=== PATIENT | female | born 1965 | race African-American/Black ===

== ENCOUNTER 2019-02-04 13:18 | Inpatient (IN) | payer BC ==
[~2019-02-04] VITALS: Ht 162.6 cm; Wt 72.6 kg
[2019-02-04] VITALS (10 sets, daily range): BP systolic 134–158; BP diastolic 81–100
[2019-02-04] MEDS ORDERED: TRIBENZOR 20-51 EACH ORAL (13:28)
--- NOTE | 2019-02-04 13:45 | NUR ---
ED Nurse Note: Patient presents to ER for hernia repair. Dr. Malave at bedside. Patient awake, alert, oriented x 4. Regular, unlabored breathing noted. Patient reports no pain. Patient has protruding area over right lower abdomen. Reports no N/V or fever. Resting in bed without facial grimacing or guarding. Bed in lowest position. Report given to KYLE Giraldo.
[2019-02-04 14:07] LABS: BASOPHILS % (AUTO) 0.7 % (0.0-2.0); EOSINOPHILS % (AUTO) 1.2 % (0.0-3.0); HEMATOCRIT 39.7 % (37.0-47.0); LYMPHOCYTES % (AUTO) 33.8 % (20.0-45.0); MEAN CORPUSCULAR VOLUME 81 FL (80-99); MONOCYTES % (AUTO) 10.7 % (1.0-10.0); NEUTROPHILS % (AUTO) 53.5 % (45.0-75.0); PLATELET COUNT 391 K/UL (150-450); RED BLOOD COUNT 4.89 M/UL (4.20-5.40); RED CELL DISTRIBUTION WIDTH 14.5 % (11.6-14.8); WHITE BLOOD COUNT 5.7 K/UL (4.8-10.8)
--- NOTE | 2019-02-04 14:11 | NUR ---
ED Nurse Note: pt amb steady gait to brp to obtain urine sample. portable xrays being done
[2019-02-04 14:12] LABS: ANION GAP 8 mmol/L (5-15); BLOOD UREA NITROGEN 12 mg/dL (7-18); CALCIUM 9.3 MG/DL (8.5-10.1); CARBON DIOXIDE 30 MMOL/L (21-32); CHLORIDE 102 MMOL/L (98-107); CREATININE 0.9 MG/DL (0.55-1.30); POTASSIUM 3.6 MMOL/L (3.5-5.1); SODIUM 139 MMOL/L (136-145)
[2019-02-04 14:27] LABS: ALANINE AMINOTRANSFERASE 10 U/L (12-78); ALKALINE PHOSPHATASE 67 U/L (46-116); ASPARTATE AMINO TRANSFERASE 11 U/L (15-37); BILIRUBIN,TOTAL 0.3 MG/DL (0.2-1.0); CKMB < 0.5 NG/ML (0.0-3.6); CREATINE KINASE 137 U/L (26-308)
--- NOTE | 2019-02-04 14:41 | NUR ---
ED Nurse Note: pt to ct scan no changes in s/s
--- NOTE | 2019-02-04 14:47 | Diagnostic Imaging Report ---
Indication: Chest pain Comparison: None A single view chest radiograph was obtained. Findings: No definite infiltrate or pulmonary vascular congestion identified. The heart is enlarged. The aorta is mildly enlarged consistent with atherosclerotic vascular disease. Impression: No acute disease
--- NOTE | 2019-02-04 14:56 | NUR ---
ED Nurse Note: pt back from ct scan. aware to remain npo pt relates no pain at this time
--- NOTE | 2019-02-04 15:20 | Diagnostic Imaging Report ---
Indication: Abdominal pain Technique: Continuous helical transaxial imaging of the abdomen and pelvis was obtained from the lung bases to the pubic symphysis during intravenous contrast administration. Coronal 2-D reformats were also obtained. Study obtained in a Siemens sensation [address] Automatic Exposure Control was utilized. Total Dose length Product (DLP): 758.[address] Dose Index Volume (CTDIvol): 15.47 mGy Comparison: None Findings: The heart is mildly enlarged. The lungs are essentially clear as visualized. Ill-defined hypodensity in the left lobe. 1.8 cm cyst noted in the left lobe as well. Gallbladder is contracted and unremarkable otherwise. The pancreas and spleen, both adrenal glands appear normal. There is a small cyst in the right kidney. There is no hydronephrosis. There is a right inguinal hernia demonstrated. Within the hernia there is a 4.5 cm encapsulated, rim-enhancing cystic lesion. There is a moderate degree of inflammation surrounding the cystic lesion within the hernia sac which may be incarcerated. Correlate clinically. The appendix is normal. There are large uterine fibroids present. For example the largest is in the fundus measuring about 10 x 8 x 10 cm. Another prominent more central fibroid measuring about 6 cm noted. Another 5 cm fibroid noted anteriorly. The bladder is nondistended. The appendix is seen and normal. Few diverticula noted in the colon without evidence of diverticulitis. Pattern is nonobstructive. There is no ascites. IMPRESSION: Right inguinal hernia with moderate inflammation and now 4.5 cm complex cyst structure with rim enhancement within the hernia sac. Correlate clinically for incarceration. The nature of the cystic lesion is unknown but appears inflammatory. Enlarged uterus due to large uterine fibroids as described above. Normal appendix. Diverticulosis of the colon. No definite diverticulitis. Liver cysts. The CT scanner at [facility] is accredited by the [employer] and the scans are performed using dose optimization techniques as appropriate to a performed exam including Automatic Exposure control.
--- NOTE | 2019-02-04 15:33 | NUR ---
ED Nurse Note: dr elkins here to irena paz.
[2019-02-04 15:50] LABS: APPEARANCE,URINE CLEAR; BILIRUBIN, URINE NEGATIVE (NEGATIVE); GLUCOSE, URINE (UA) NEGATIVE (NEGATIVE); KETONES,URINE NEGATIVE (NEGATIVE); LEUKOCYTE ESTERASE ,URINE NEGATIVE (NEGATIVE); NITRITE,URINE NEGATIVE (NEGATIVE); PH,URINE 6 (4.5-8.0); PROTEIN,URINE NEGATIVE (NEGATIVE); UROBILINOGEN,URINE NORMAL MG/DL (0.0-1.0)
[2019-02-04 16:05] LABS: COLOR,URINE YELLOW
--- NOTE | 2019-02-04 16:42 | Consultation ---
History of Present Illness General Date patient seen: Feb 04, 2019 Reason for Hospitalization: General Complaint Present Illness HPI This is a very pleasant 53-year-old female who presented earlier to my office complaining of acute worsening right groin pain. Patient is well-known to me from prior who was initially seen earlier this year for evaluation of right groin discomfort but during examination was not identified to have a large hernia and one could not be reproduced on examination in the office. At that time a definitive hernia cannot be diagnosed and patient was fairly asymptomatic but just comes for evaluation. At that time after long discussion with the patient decision was made not to pursue any further imaging and monitor given fairly asymptomatic and no reproducible hernia can be noted on examination. Since I have not heard back from patient she states she was doing well until couple days ago when she began to have acute onset of pain and has since noticed a bulge in her groin. She was concerned and came into the office for evaluation. In the office she was noted to have a nonreducible right inguinal hernia that was tender and she was sent to the emergency room for evaluation. Expresses discomfort no nausea no vomiting. Allergies: Coded Allergies: No Known Allergies (Unverified , 02/04/19) Medication History Scheduled Olmesartan Med/Amlodipine/Hctz 20-5-12.5MG (Tribenzor 20-5-12.5 Mg Tablet), 1 TAB ORAL DAILY, (Reported) Patient History History Provided By: Patient, Medical Record, PMD Healthcare decision maker Resuscitation status Advanced Directive on File Past Medical/Surgical History Past Medical/Surgical History: (1) Incarcerated right inguinal hernia Review of Systems Review of Symptoms General ROS: no weight loss or fever Psychological ROS: no depression or mood changes, no memory loss Ophthalmic ROS: no visual changes or eye irritation ENT ROS: no nasal congestion, hearing loss, dizziness Allergy and Immunology ROS: no allergic symptoms or urticaria Hematological and Lymphatic ROS: no swollen glands, unusual bleeding or bruising Endocrine ROS: no polyuria, polydipsia, weight changes, temperature intolerance Respiratory ROS: no cough, shortness of breath, or wheezing Cardiovascular ROS: no chest pain or dyspnea on exertion Gastrointestinal ROS: denies abdominal pain, no bright red blood in stool. Musculoskeletal ROS: no myalgias or arthralgias Neurological ROS: no TIA or stroke symptoms Dermatological ROS: no new or changing skin lesions, rashes or pruritis Physical Exam Physical Exam General appearance: alert, cooperative, no distress, appears stated age Head: Normocephalic, without obvious abnormality, atraumatic Eyes: conjunctivae/corneas clear. PERRL, EOM's intact. Fundi benign Throat: Lips, mucosa, and tongue normal. Teeth and gums normal Neck: supple, symmetrical, trachea midline, no adenopathy, thyroid: not enlarged, symmetric, no tenderness/mass/nodules, no carotid bruit and no JVD Lungs: clear to auscultation bilaterally Heart: regular rate and rhythm, S1, S2 normal, no murmur, click, rub or gallop Abdomen: soft, non-tender. Bowel sounds normal. No masses, no organomegaly Extremities: extremities normal, atraumatic, no cyanosis or edema Pulses: 2+ and symmetric Skin: Skin color, texture, turgor normal. No rashes or lesions Neurologic: Grossly normal Incarcerated tender right inguinal hernia Last 24 Hour Vital Signs Date Time Temp Pulse Resp B/P (MAP) Pulse Ox O2 Delivery O2 Flow Rate FiO2 02/04/19 13:40 64 16 Room Air 02/04/19 13:24 98.2 68 16 144/98 (113) 95 Room Air Laboratory Tests Test 02/04/19 13:50 02/04/19 14:30 White Blood Count 5.7 K/UL (4.8-10.8) Red Blood Count 4.89 M/UL (4.20-5.40) Hemoglobin 12.0 G/DL (12.0-16.0) Hematocrit 39.7 % (37.0-47.0) Mean Corpuscular Volume 81 FL (80-99) Mean Corpuscular Hemoglobin 24.5 PG (27.0-31.0) L Mean Corpuscular Hemoglobin Concent 30.2 G/DL (32.0-36.0) L Red Cell Distribution Width 14.5 % (11.6-14.8) Platelet Count 391 K/UL (150-450) Mean Platelet Volume 5.7 FL (6.5-10.1) L Neutrophils (%) (Auto) 53.5 % (45.0-75.0) Lymphocytes (%) (Auto) 33.8 % (20.0-45.0) Monocytes (%) (Auto) 10.7 % (1.0-10.0) H Eosinophils (%) (Auto) 1.2 % (0.0-3.0) Basophils (%) (Auto) 0.7 % (0.0-2.0) Prothrombin Time 10.6 SEC (9.30-11.50) Prothromb Time International Ratio 1.0 (0.9-1.1) Activated Partial Thromboplast Time 31 SEC (23-33) Sodium Level 139 MMOL/L (136-145) Potassium Level 3.6 MMOL/L (3.5-5.1) Chloride Level 102 MMOL/L (98-107) Carbon Dioxide Level 30 MMOL/L (21-32) Anion Gap 8 mmol/L (5-15) Blood Urea Nitrogen 12 mg/dL (7-18) Creatinine 0.9 MG/DL (0.55-1.30) Estimat Glomerular Filtration Rate > 60 mL/min (>60) Glucose Level 111 MG/DL (74-106) H Calcium Level 9.3 MG/DL (8.5-10.1) Total Bilirubin 0.3 MG/DL (0.2-1.0) Aspartate Amino Transf (AST/SGOT) 11 U/L (15-37) L Alanine Aminotransferase (ALT/SGPT) 10 U/L (12-78) L Alkaline Phosphatase 67 U/L (46-116) Total Creatine Kinase 137 U/L (26-308) Creatine Kinase MB < 0.5 NG/ML (0.0-3.6) Creatine Kinase MB Relative Index 0.3 Troponin I 0.000 ng/mL (0.000-0.056) Total Protein 7.9 G/DL (6.4-8.2) Albumin 4.0 G/DL (3.4-5.0) Globulin 3.9 g/dL Albumin/Globulin Ratio 1.0 (1.0-2.7) Urine Color Yellow Urine Appearance Clear Urine pH 6 (4.5-8.0) Urine Specific [place] 1.015 (1.005-1.035) Urine Protein Negative (NEGATIVE) Urine Glucose (UA) Negative (NEGATIVE) Urine Ketones Negative (NEGATIVE) Urine Blood 4+ (NEGATIVE) H Urine Nitrite Negative (NEGATIVE) Urine Bilirubin Negative (NEGATIVE) Urine Urobilinogen Normal MG/DL (0.0-1.0) Urine Leukocyte Esterase Negative (NEGATIVE) Urine RBC 0-2 /HPF (0 - 2) Urine WBC 0-2 /HPF (0 - 2) Urine Squamous Epithelial Cells Occasional /LPF Urine Bacteria Few /HPF (NONE) Urine Mucus Many /LPF (NONE/OCC) H Urine Opiates Screen Negative (NEGATIVE) Urine Barbiturates Screen Negative (NEGATIVE) Phencyclidine (PCP) Screen Negative (NEGATIVE) Urine Amphetamines Screen Negative (NEGATIVE) Urine Benzodiazepines Screen Negative (NEGATIVE) Urine Cocaine Screen Negative (NEGATIVE) Urine Marijuana (THC) Screen Negative (NEGATIVE) Height (Feet): 5 Height (Inches): 4.00 Weight (Pounds): 160 Assessment/Plan Problem List: (1) Incarcerated right inguinal hernia Assessment & Plan: This is a 53-year-old female with acute incarcerated right inguinal hernia. Hernia is symptomatic and not reducible. CT with abnormal findings as below. Right inguinal hernia with moderate inflammation and now 4.5 cm complex cyst structure with rim enhancement within the hernia sac. Correlate clinically for incarceration. The nature of the cystic lesion is unknown but appears inflammatory. N.p.o. IV fluids IV antibiotics OR for reduction and repair of right incarcerated inguinal hernia. Risk-benefit alternative discussed patient in detail. Consent obtained. ICD Codes: K40.30 - Unilateral inguinal hernia, with obstruction, without gangrene, not specified as recurrent SNOMED: [id number] Jakob Malave Feb 04, 2019 16:42
[2019-02-04] MEDS ORDERED: ceFAZolin sod 2 GM in D5W 110 ML IV ONE (16:45)
[2019-02-04] MEDS ORDERED: Bacitracin 50000 Units Vial ONE (17:14)
--- NOTE | 2019-02-04 17:16 | NUR ---
ED Nurse Note: pt signing belongings list, all belongings home with sister. pt with abx infusion and ns infusion. pt signing both surgical and blood product consent. pt aware to go to or from ed and agrees procedure explained by dr elkins.
--- NOTE | 2019-02-04 17:18 | NUR ---
ED Nurse Note: no swabs obtained as pt from home and no prior admission, does not meet criteria for protocol
[2019-02-04] MEDS ORDERED: LR 1000ml ONE (17:30)
[2019-02-04] MEDS ORDERED: Sterile Water Irrig 1000ml IRRIG ONE (17:30)
[2019-02-04] MEDS ORDERED: NS Irrig 1000ml ONE (17:30)
[2019-02-04] MEDS ORDERED: Propofol 200mg/20ml IV ONE (17:30)
[2019-02-04] MEDS ORDERED: Zemuron 50mg/5ml Inj IV ONE (17:30)
--- NOTE | 2019-02-04 17:35 | NUR ---
ED Nurse Note: pt report given to [facility] ATTORNEY Shweta. aware of pt status of npo since last night. pt tp OR with transport staff
[2019-02-04] MEDS ORDERED: Dexamethasone 4mg/ml vial ONE (17:41)
[2019-02-04] MEDS ORDERED: Lidocaine 1% MPF 10mg/ml 5ml ONE (17:41)
[2019-02-04] MEDS ORDERED: Sodium Chloride 10ml vial INJ ONE (17:41)
[2019-02-04] MEDS ORDERED: fentaNYL 100 mcg/2 mL IV ONE (17:42)
[2019-02-04] MEDS ORDERED: LR 1000ml 1,000 ML IVLG SCH (17:46)
[2019-02-04] MEDS ORDERED: fentaNYL 100 mcg/2 mL IV PRN (18:00)
[2019-02-04] MEDS ORDERED: oxyCODONE HCL/Acetaminophen 5/325mg ORAL PRN (18:00)
[2019-02-04] MEDS ORDERED: HYDROcodone/Acetamin 7.5/325 tab ORAL PRN (18:00)
[2019-02-04] MEDS ORDERED: DiphenhydrAMINE 50mg/ml Inj IVP PRN (18:00)
[2019-02-04] MEDS ORDERED: Ketorolac 30mg Inj IV PRN ×3 (18:00→19:15)
[2019-02-04] MEDS ORDERED: LORazepam Inj 2mg/ml 1ml IV PRN (18:00)
[2019-02-04] MEDS ORDERED: Atropine Sulfate 0.4mg/ml inj IVP PRN (18:00)
[2019-02-04] MEDS ORDERED: Midazolam 2mg/2ml Inj IVP PRN (18:00)
[2019-02-04] MEDS ORDERED: HYDROcodone/Acetamin 5/325 tab ORAL PRN ×2 (18:00→19:15)
[2019-02-04] MEDS ORDERED: Labetalol 5mg/ml 20ml vial IV PRN (18:00)
[2019-02-04] MEDS ORDERED: Hydromorphone 0.5mg/0.5ml inj IVP PRN ×2 (18:00→19:15)
[2019-02-04] MEDS ORDERED: Metoclopramide 10mg/2ml Inj IVP PRN ×3 (18:00→21:15)
[2019-02-04] MEDS ORDERED: Meperidine 50mg/ml Inj(FOR RIGORS ONLY) IVP PRN (18:00)
--- NOTE | 2019-02-04 18:01 | Pre-Procedure Note/Attestation ---
Pre-Procedure Note/Attestation Complete Prior to Procedure Planned Procedure: right Procedure Narrative: right inguinal hernia repair with mesh Indications for Procedure Pre-Operative Diagnosis: incarcerated right inguinal hernia Attestation I attest that I discussed the nature of the procedure; its benefits; risks and complications; and alternatives (and the risks and benefits of such alternatives ), prior to the procedure, with the patient (or the patient's legal registered representative). I attest that, if there was a reasonable possibility of needing a blood transfusion, the patient (or the patient's legal registered representative) was given the [facility] standardized written summary, pursuant to the Dharmesh [place] Blood Safety Act ([place] Health and Safety Code # 1645, as amended). I attest that I re-evaluated the patient just prior to the surgery and that there has been no change in the patient's H&P, except as documented below: Jakob Malave Feb 04, 2019 18:01
--- NOTE | 2019-02-04 18:17 | Anethesia Preoperative Eval ---
Anesthesia Pre-op PMH/ROS General Date of Evaluation: Feb 04, 2019 Time of Evaluation: 17:36 Anesthesiologist: Radha ASA Score: ASA 2 - Emergency Mallampati Score Class I : Soft palate, uvula, fauces, pillars visible Class II: Soft palate, uvula, fauces visible Class III: Soft palate, base of uvula visible Class IV: Only hard plate visible Mallampati Classification: Class I Surgeon: Ananda Diagnosis: R Inguinal Hernia Surgical Procedure: Open R Inguinal Hernia Repair Anesthesia History: none Family History: no anesthesia problems Allergies: Coded Allergies: No Known Allergies (Unverified , 02/04/19) Medications: see eMAR Patient NPO?: Yes Past Medical History Cardiovascular: Reports: HTN Other: other - Overweight Anesthesia Pre-op Phys. Exam Physician Exam Last Vital Signs Date Time Temp Pulse Resp B/P (MAP) Pulse Ox O2 Delivery O2 Flow Rate FiO2 02/04/19 17:37 99.1 64 18 135/91 99 Room Air Constitutional: NAD Neurologic: CN 2-12 intact Cardiovascular: RRR Respiratory: CTA Gastrointestinal: S/NT/ND Airway Exam Mallampati Score: Class I MO: full ROM: full Teeth: intact Anesthesia Pre-op A/P Labs Hematology Test 02/04/19 13:50 White Blood Count 5.7 K/UL (4.8-10.8) Red Blood Count 4.89 M/UL (4.20-5.40) Hemoglobin 12.0 G/DL (12.0-16.0) Hematocrit 39.7 % (37.0-47.0) Mean Corpuscular Volume 81 FL (80-99) Mean Corpuscular Hemoglobin 24.5 PG (27.0-31.0) L Mean Corpuscular Hemoglobin Concent 30.2 G/DL (32.0-36.0) L Red Cell Distribution Width 14.5 % (11.6-14.8) Platelet Count 391 K/UL (150-450) Mean Platelet Volume 5.7 FL (6.5-10.1) L Neutrophils (%) (Auto) 53.5 % (45.0-75.0) Lymphocytes (%) (Auto) 33.8 % (20.0-45.0) Monocytes (%) (Auto) 10.7 % (1.0-10.0) H Eosinophils (%) (Auto) 1.2 % (0.0-3.0) Basophils (%) (Auto) 0.7 % (0.0-2.0) Coagulation Test 02/04/19 13:50 Prothrombin Time 10.6 SEC (9.30-11.50) Prothromb Time International Ratio 1.0 (0.9-1.1) Activated Partial Thromboplast Time 31 SEC (23-33) Chemistry Test 02/04/19 13:50 Sodium Level 139 MMOL/L (136-145) Potassium Level 3.6 MMOL/L (3.5-5.1) Chloride Level 102 MMOL/L (98-107) Carbon Dioxide Level 30 MMOL/L (21-32) Anion Gap 8 mmol/L (5-15) Blood Urea Nitrogen 12 mg/dL (7-18) Creatinine 0.9 MG/DL (0.55-1.30) Estimat Glomerular Filtration Rate > 60 mL/min (>60) Glucose Level 111 MG/DL (74-106) H Calcium Level 9.3 MG/DL (8.5-10.1) Total Bilirubin 0.3 MG/DL (0.2-1.0) Aspartate Amino Transf (AST/SGOT) 11 U/L (15-37) L Alanine Aminotransferase (ALT/SGPT) 10 U/L (12-78) L Alkaline Phosphatase 67 U/L (46-116) Total Creatine Kinase 137 U/L (26-308) Creatine Kinase MB < 0.5 NG/ML (0.0-3.6) Creatine Kinase MB Relative Index 0.3 Troponin I 0.000 ng/mL (0.000-0.056) Total Protein 7.9 G/DL (6.4-8.2) Albumin 4.0 G/DL (3.4-5.0) Globulin 3.9 g/dL Albumin/Globulin Ratio 1.0 (1.0-2.7) Risk Assessment & Plan Assessment: ASA 2E Plan: GA, SED, GlideScope Go Status Change Before Surgery: No Pre-Antibiotics Dru Gram Ancef IV Given Within 1 Hr of Incision: Yes Time Given: 17:46 Renato Garcia MD Feb 04, 2019 18:16
--- NOTE | 2019-02-04 18:18 | Immediate Post-Op Evaluation ---
Immediate Post-Op Evalulation Immediate Post-Op Evalulation Procedure: Open R Inguinal Hernia Repair Date of Evaluation: Feb 04, 2019 Time of Evaluation: 17:37 IV Fluids: 1000 LR Blood Products: 0 Estimated Blood Loss: 20 Urinary Output: 0 Blood Pressure Systolic: 143 Blood Pressure Diastolic: 101 Pulse Rate: 97 Respiratory Rate: 16 O2 Sat by Pulse Oximetry: 100 Temperature (Fahrenheit): 98 Pain Score (1-10): 2 Nausea: No Vomiting: No Complications 0 Patient Status: awake, reacts, patent, extubated, none Hydration Status: adequate Dru Gram Ancef IV Given Within 1 Hr of Incision: Yes Time Given: 17:46 Renato Garcia MD Feb 04, 2019 18:18
[2019-02-04] MEDS ORDERED: Glycopyrrolate 0.2mg/ml 1ml Vial ONE (18:32)
[2019-02-04] MEDS ORDERED: Neostigmine 1mg/ml 10ml Inj ONE (18:32)
[2019-02-04] MEDS ORDERED: Acetaminophen (Non formulary) 100 ML IV ONE (19:00)
[2019-02-04] MEDS ORDERED: HYDROmorphone 1mg/ml Carpuject IVP PRN (19:15)
[2019-02-04] MEDS ORDERED: HYDROcodone/Acetamin 10/325 tab ORAL PRN (19:15)
[2019-02-04] MEDS ORDERED: Milk of Magnesia 30ml Ud ORAL PRN (19:15)
--- NOTE | 2019-02-04 19:17 | Brief Operative Note ---
Immediate Post Operative Note Operative Note Pre-op Diagnosis: incarcerated right inguinal hernia Procedure: right femoral hernia repair with mesh Post-op Diagnosis: incarcerated right femoral hernia Surgeon: severo Anesthesiologist: dave Anesthesia: general, local Specimen: yes Complications: none Condition: stable Fluids: see records Estimated Blood Loss: minimal Drains: none Implant(s) used?: Yes Jakob Malave Feb 04, 2019 19:17
--- NOTE | 2019-02-04 19:47 | Emergency Room Report ---
History of Present Illness General Chief Complaint: General Complaint Source: Patient, Medical Record, PMD Present Illness HPI 53-year-old female with history of inguinal hernia sent into [facility] by Dr. Ananda elder for preop clearance for inguinal hernia repair. Patient reports that she has had a hernia for many years however it started being nonreducible and more painful today. Rating the pain 10 out of 10. Denies pain radiation, tingling numbness. Patient is stable at the emergency room. Denies abdominal pain, nausea vomiting, chest pain, shortness of breath, palpitation all other associated symptoms. Patient was consulted with Dr. Malave at the emergency room today. Denies recent heavy lifting fall or injury. No thrombosis or color changes over the hernia noted. Allergies: Coded Allergies: No Known Allergies (Unverified , 02/04/19) Patient History Past Medical History: see triage record Past Surgical History: unable to obtain Pertinent Family History: unable to obtain Last Menstrual Period: JANUARY 16, 2019 Now: No Immunizations: UTD Reviewed Nursing Documentation: PMH: Agreed; PSxH: Agreed Nursing Documentation-PMH Past Medical History: No History, Except For Hx Hypertension: Yes Review of Systems All Other Systems: negative except mentioned in HPI Physical Exam Vital Signs Date Time Temp Pulse Resp B/P (MAP) Pulse Ox O2 Delivery O2 Flow Rate FiO2 02/04/19 13:24 98.2 68 16 144/98 (113) 95 Room Air Sp02 EP Interpretation: reviewed, normal General Appearance: normal inspection, well appearing, no apparent distress, alert, GCS 15 Head: normocephalic, atraumatic Eyes: bilateral eye normal inspection, bilateral eye PERRL ENT: normal ENT inspection, normal pharynx Neck: normal inspection, full range of motion, supple Respiratory: normal inspection, chest non-tender, lungs clear, no rhonchi, no wheezing Cardiovascular #1: normal inspection, regular rate, rhythm, no edema, no murmur Gastrointestinal: non tender, hernia - Right inguinal nonreducible Rectal: deferred Genitourinary: no CVA tenderness Musculoskeletal: normal inspection, back normal, digits/nails normal Neurologic: normal inspection, alert, oriented x3, responsive Psychiatric: normal inspection, judgement/insight normal Skin: no rash Lymphatic: normal inspection, no adenopathy, axilla node tender (R) Medical Decision Making PA Attestation Diagnosis and treatment plans were reviewed and discussed with my supervising physician Dr. Dial ER Course 53-year-old female with history of inguinal hernia sent into [place] ER by Dr. Ananda elder for preop clearance for inguinal hernia repair. Patient reports that she has had a hernia for many years however it started being nonreducible and more painful today. Rating the pain 10 out of 10. Denies pain radiation, tingling numbness. Patient is stable at the emergency room. Denies abdominal pain, nausea vomiting, chest pain, shortness of breath, palpitation all other associated symptoms. Patient was consulted with Dr. Malave at the emergency room today. Denies recent heavy lifting fall or injury. No thrombosis or color changes over the hernia noted. Ddx considered but are not limited to: appendicitis, cholecystis, gastritis, gasthroentritis, UTI, pyelonephritis, SBO, diverticulitis, influenza with GI manifestation, FL, complication with , nonreducible inguinal hernia, thrombosed hernia Vital signs: are WNL, pt. is afebrile H&PE are most consistent with: Nonreducible inguinal hernia ORDERS: abdominal CT, abdominal pain set, EKG, ED INTERVENTIONS: None required at this time. Patient was admited with diagnosis of nonreducible inguinal hernia to Dr. Malave under supervision of : Jayro pt stable at time of admission and transferred to [place] OR to be operated today by Dr. Malave EKG Diagnostic Results Rate: normal Rhythm: NSR ST Segments: no acute changes Chest X-Ray Diagnostic Results Chest X-Ray Diagnostic Results : Chest X-Ray Ordered: Yes # of Views/Limited/Complete: 1 View Indication: Other EP Interpretation: Yes PA Xray: Interpretation reviewed, by supervising MD, and agrees with findings. Interpretation: no consolidation, no effusion, no pneumothorax, no acute cardiopulmonary disease Impression: No acute disease Electronically Signed by: Gisell Huff PA-C CT/MRI/US Diagnostic Results CT/MRI/US Diagnostic Results : Imaging Test Ordered: CT abdomen pelvis Impression Right inguinal hernia there is a 4.5 cm encapsulated rim-enhancing cystic lesion Last Vital Signs Date Time Temp Pulse Resp B/P (MAP) Pulse Ox O2 Delivery O2 Flow Rate FiO2 02/04/19 19:25 97 16 100 02/04/19 17:37 99.1 135/91 Room Air Disposition: ADMITTED INPATIENT Condition: Stable Referrals: Jakob Malave (PCP) Gisell Michel Feb 04, 2019 19:47
--- NOTE | 2019-02-04 20:40 | NUR ---
Receive a report from KYLE Cortez. Pt newly admitted via bed after right femoral hernia repair with mesh @ OR. Pt is awake and alert. No acute distress noted. Breathing is even and non labored. Spo2 checked as 94% in RA. Encourage deep breathing. Op site is clear with Dermabond and steri-strips. No bleeding signs noted. Pain is 2/10 after pain medication at OR. BS intact in 4 quadrants. Started clear liquid diet. Belongings checked, Provide unit/room orientations. Call light within reach. Will continue to monitor. Call Dr. Junior for pt's admission.
--- NOTE | 2019-02-04 21:30 | Operative Note - Dictated ---
DATE OF OPERATION: 02/04/2019 PREOPERATIVE DIAGNOSIS: Right inguinal hernia, incarcerated. POSTOPERATIVE DIAGNOSIS: Right femoral hernia, incarcerated. OPERATION PERFORMED: Right femoral hernia repair with mesh. ATTENDING SURGEON: Jakob Malave M.D. ASSEMBLER DIELECTRIC HEATER: None. ANESTHESIOLOGIST: Renato Garcia M.D. ANESTHESIA: General JAVASCRIPT APPLICATION DEVELOPER. ESTIMATED BLOOD LOSS: Minimal. IV FLUIDS: Please see anesthesia records. COMPLICATIONS: None. DRAINS: None. COUNTS: Sponge and needle count correct x2. WOUND CLASSIFICATION: Class I. IMPLANTS: Atrium ProLite mesh, reference #[id number], lot number #[id number], date of expiration 08/08/1921, 6 cm x 6 cm polypropylene monofilament mesh. INDICATIONS FOR PROCEDURE: This is a 53-year-old female who presented to the emergency department with complaints of acute right groin pain for approximately 3 days with a bulge. On evaluation, the patient had a right inguinal bulge that was not reducible and very firm and tender. CT scan was performed identifying a right inguinal hernia of moderate inflammation and a x centimeter complex cystic structure with enhancement within the sac consistent with potential incarceration and cystic lesion of unknown etiology, potentially inflammatory. Given these findings, surgery was indicated and recommended. The patient was taken directly from the emergency department to surgery for care and management. Risks, benefits, alternatives discussed with the patient and family in detail. Consent was obtained. The risks of mesh implantation were discussed in detail as well. OPERATIVE NOTE: The patient was taken to the operating room and placed on the operating table in supine position with bilateral arms out. All bony prominences were well padded. SCDs were placed. Preoperative time-out taken to identify the patient, procedure, operative staff, and surgical staff. General anesthesia was induced. The patient was intubated. The right groin was prepped and draped in standard surgical fashion. Local anesthetic was infiltrated for skin incision. Skin incision was made overlying the large nonreducible mass. Incision was carried down to the skin and subcutaneous tissue and fascia and Alan fascia until the mass identified. In further evaluating, it was identified to be below the inguinal ligament and the external aponeurosis and with further investigation it was found to be a moderate-sized right femoral hernia that when which the sac had incarcerated, fluid-filled, and became very thickened and inflamed, but not infected. The hernia sac was entered and a thick wall was identified of the hernia sac. The fluid inside the hernia sac was evacuated. The defect area of the hernia sac was identified and the femoral hernia was anatomically noted. At this time, the sac was ligated high at the level of the exit of the femoral canal. Ligation was performed with a 3-0 Vicryl suture. Following this, the wound was irrigated and hemostasis obtained with electrocautery. The anatomic landmarks were again identified noting anteriorly and superiorly the inguinal ligament, posteriorly the pectineal ligament lying anterior to the superior pubic ramus and medially the lacunar ligament and laterally the femoral vein, which was identified by palpation of the artery. The femoral vessels were not interrupted and great care was taken to ensure that no injury was performed. Once the hernia sac was ligated and divided and the hernia clearly identified no anatomic structures, it was noted that there was a defect in the femoral ring, which was not closed. At this time, decision made to place a mesh. An Atrium [employer] ProLite mesh 6 cm x 6 cm was used and fashioned into a cigar with the ends being tied using 2-0 Prolene sutures. Once this was completed, it was entered through the femoral defect and was snugly placed without complication. The exterior exit clip was then sutured to the inguinal ligament, superiorly and the pectineal ligament posteriorly and the lacunar ligament medially. Once this was completed, the wound bed was irrigated. Mesh was noted to be in appropriate positioning and well placed. At this time, we began the conclusion of our procedure. The remaining defect was closed in multiple layers reapproximating subcutaneous tissue, Alan's fascia using 3-0 Vicryl interrupted sutures. The remaining skin incision was reapproximated using 4-0 Monocryl subcuticular running suture. The wound was irrigated and Steri-Strips and skin glue were applied. The patient tolerated the procedure well, was extubated, and taken to postanesthetic care unit in stable condition. Jakob Malave M.D. DR: DYANA JOB#: [id number] CC: DAMION
[2019-02-04] MEDS: D5 1/2NS w/KCl 20mEq 1,000 ML IV SCH (22:02)
[2019-02-05 00:25] VITALS: BP 143/92
[2019-02-05] MEDS: ceFAZolin sod 2 GM in D5W 110 ML IV SCH ×2 (02:04→10:17)
[2019-02-05 04:00] VITALS: BP 136/80
--- NOTE | 2019-02-05 05:51 | NUR ---
NURSE NOTES: Pt is awake and alert. Denies pain on op site. Op site is clear without any bleeding signs or discoloration. Will continue to monitor.
[2019-02-05 06:34] LABS: BASOPHILS % (AUTO) 0.2 % (0.0-2.0); HEMATOCRIT 37.7 % (37.0-47.0); HEMOGLOBIN 11.6 G/DL (12.0-16.0); LYMPHOCYTES % (AUTO) 17.4 % (20.0-45.0); MEAN CORPUSCULAR VOLUME 81 FL (80-99); MONOCYTES % (AUTO) 4.2 % (1.0-10.0); NEUTROPHILS % (AUTO) 78.2 % (45.0-75.0); PLATELET COUNT 437 K/UL (150-450); RED BLOOD COUNT 4.65 M/UL (4.20-5.40); RED CELL DISTRIBUTION WIDTH 14.4 % (11.6-14.8); WHITE BLOOD COUNT 7.1 K/UL (4.8-10.8)
[2019-02-05 07:20] LABS: ALANINE AMINOTRANSFERASE 7 U/L (12-78); ALBUMIN 3.4 G/DL (3.4-5.0); ALBUMIN/GLOBULIN RATIO 0.7 (1.0-2.7); ALKALINE PHOSPHATASE 67 U/L (46-116); ANION GAP 11 mmol/L (5-15); ASPARTATE AMINO TRANSFERASE 10 U/L (15-37); BILIRUBIN,TOTAL 0.2 MG/DL (0.2-1.0); BLOOD UREA NITROGEN 10 mg/dL (7-18); CALCIUM 9.2 MG/DL (8.5-10.1); CARBON DIOXIDE 24 MMOL/L (21-32); CHLORIDE 105 MMOL/L (98-107); POTASSIUM 4.2 MMOL/L (3.5-5.1); SODIUM 140 MMOL/L (136-145)
--- NOTE | 2019-02-05 07:30 | NUR ---
HAND-OFF: Report given to KYLE Pulido. Done rounds.
--- NOTE | 2019-02-05 07:33 | NUR ---
NURSE NOTES: WALKING ROUNDS DONE WITH OUTGOING RN. PATIENT AWAKE AT BEDSIDE. QUESTIONS ANSWERED NEEDS MET. DISCUSSED PLAN OF CARE FOR THE DAY.SURGICAL SITE RENALDO, C/D/I. DENIES PAIN. UP AMBULATING INDEPENDENTLY. GAIT STEADY. CALL LIGHT WITHIN REACH.
[2019-02-05 08:00] VITALS: BP 119/87
[2019-02-05] MEDS ORDERED: Irbesartan 150mg tablet ORAL SCH (09:00)
[2019-02-05] MEDS ORDERED: hydroCHLOROthiazide 12.5mg TAB ORAL SCH (09:00)
[2019-02-05] MEDS ORDERED: Docusate 100mg cap ORAL SCH (09:00)
[2019-02-05] MEDS ORDERED: Heparin 5000 units/ml inj SUBQ SCH (09:00)
[2019-02-05] MEDS ORDERED: Losartan 50mg tab ORAL SCH (09:00)
--- NOTE | 2019-02-05 09:19 | 48 Hour Post Anesthesia Eval ---
Post Anesthesia Evaluation Procedure: Open R Inguinal Hernia Repair Date of Evaluation: Feb 05, 2019 Time of Evaluation: 09:18 Blood Pressure Systolic: 132 0: 56 Pulse Rate: 72 Respiratory Rate: 20 Temperature (Fahrenheit): 97.6 O2 Sat by Pulse Oximetry: 98 Airway: patent Nausea: No Vomiting: No Pain Intensity: 2 Hydration Status: adequate Cardiopulmonary Status: stable Mental Status/LOC: patient returned to baseline Follow-up Care/Observations: n/a Post-Anesthesia Complications: none Follow-up care needed: ready to discharge Dawit Chapin MD Feb 05, 2019 09:19
--- NOTE | 2019-02-05 10:15 | History and Physical Report ---
DATE OF ADMISSION: 02/04/2019 CHIEF COMPLAINT: Incarcerated right inguinal hernia. HISTORY OF PRESENT ILLNESS: The patient is a pleasant 53-year-old female. 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 She has been seen intermittently with complaints of right groin pain. She has noted that she has had hernia, but it has been reducible and asymptomatic. On the day of admission, she had a nonreducible right inguinal hernia. She is now status post hernia repair and is doing well. PAST MEDICAL HISTORY: Includes fibroids. PAST SURGICAL HISTORY: None. CURRENT MEDICATIONS: Reconciled and reviewed. ALLERGIES: None. FAMILY HISTORY: None. SOCIAL HISTORY: Negative for tobacco, ethanol, or drugs. REVIEW OF SYSTEMS: Unremarkable except for right groin pain. PHYSICAL EXAMINATION: VITAL SIGNS: Temperature 98 degrees, pulse 71, respirations 18, and blood pressure 136/80. GENERAL: The patient is well developed, in no apparent distress. HEART: Regular. LUNGS: Clear. ABDOMEN: Soft. EXTREMITIES: No clubbing or cyanosis. LABORATORY DATA: Labs were reviewed. ASSESSMENT: This is a pleasant female status post right inguinal hernia repair. She is doing well. From medical standpoint, she is stable for discharge once cleared by the surgeon. The patient can return to work once cleared by the surgeon. Boyd Junior M.D. DR: MICKIE JOB#: [id number] CC:
[2019-02-05] MEDS ORDERED: OLMESARTAN HCTZ ORAL SCH (10:30)
[2019-02-05] MEDS: D5 1/2NS w/KCl 20mEq 1,000 ML IV SCH (10:50)
[2019-02-05 12:00] VITALS: BP 117/84
[2019-02-05] MEDS ORDERED: ACETAMINOPHEN-1 EAC1 ORAL (14:27)
--- NOTE | 2019-02-05 14:49 | NUR ---
CASE MANAGEMENT:REVIEW 02/04/19 53 YR OLD FEMALE PRESENTED TO ER CC: FEMORAL HERNIA SI: INCARCERATED RT INGUINAL HERNIA 99.1 64 16 135/91 99% ON RA GLUCOSE+111 IS: 1L NS BOLUS IV CEFAZOLIN CT ABD/PELVIS CHEST XRAY NPO : TO MED/SURG 3 EAST IS: TO SURGERY FOR RT INGUINAL HERNIA REPAIR 02/05/19 DISCHARGE HOME
--- NOTE | 2019-02-05 15:16 | NUR ---
P.T NOTE: P.T EVALUATION COMPLETED. PATIENT IS BASELINE INDEPENDENT WITH ADL/FUNCTIONAL MOBILITIES AN GAIT/LOCOMOTION . ENCOURAGED PATIENT OOB ACTIVITIES VS BED REST UNLESS OTHERWISE ORDERED TO PREVENT DECONDITIONING DURING HOSPITAL STAY. PATIENT VERBALIZED UNDERSTANDING. NO FURTHER P.T FOLLOW UP NEEDED. D/C P.T SERVICES , THANK YOU FOR THIS REFERRAL.
--- NOTE | 2019-02-05 15:48 | Surgery Progress Note ---
Surgery Progress Note Subjective Procedure Performed right femoral hernia repair with mesh Additional Comments Patient seen and examined bedside on postop day 1 status post right incarcerated femoral hernia repair with mesh. Patient doing very well. States minimal pain. No nausea vomiting fever chills. Passing flatus. Ambulatory. Ready to go home. Objective Last 24 Hour Vital Signs Date Time Temp Pulse Resp B/P (MAP) Pulse Ox O2 Delivery O2 Flow Rate FiO2 02/05/19 12:00 98.0 68 17 117/84 (95) 98 02/05/19 09:19 72 20 98 02/05/19 08:00 98.1 64 18 119/87 (98) 98 02/05/19 04:00 98.0 71 18 136/80 (98) 96 02/05/19 00:25 97.6 68 18 143/92 (109) 95 02/04/19 23:10 Room Air 02/04/19 20:40 98.7 70 18 134/81 (98) 94 02/04/19 20:31 97.9 02/04/19 20:30 97.9 65 19 138/93 98 Nasal Cannula 3 02/04/19 20:15 63 19 137/92 100 Nasal Cannula 3 02/04/19 20:01 68 15 143/90 100 Nasal Cannula 3 02/04/19 19:55 77 18 137/94 100 Nasal Cannula 3 02/04/19 19:45 77 21 143/95 100 Simple Mask 6 02/04/19 19:36 81 21 143/90 100 Simple Mask 6 02/04/19 19:31 80 16 158/98 100 Simple Mask 6 02/04/19 19:26 98.0 97 16 143/100 100 Simple Mask 6 02/04/19 19:25 97 16 100 02/04/19 17:37 99.1 64 18 135/91 99 Room Air 02/04/19 17:15 99.1 64 16 135/91 99 Room Air I&O Intake and Output 02/04/19 02/05/19 19:00 07:00 Intake Total 1830 ml Output Total 20 ml Balance 1810 ml Intake IV Total 1830 ml Output Estimated Blood Loss 20 ml # Voids 1 4 Dressing: dry Wound: clean Cardiovascular: RSR Respiratory: clear Abdomen: soft, flat, non-tender, present bowel sounds, non-distended Extremities: no edema, no tenderness, no cyanosis Laboratory Tests Test 02/05/19 05:55 White Blood Count 7.1 K/UL (4.8-10.8) Red Blood Count 4.65 M/UL (4.20-5.40) Hemoglobin 11.6 G/DL (12.0-16.0) L Hematocrit 37.7 % (37.0-47.0) Mean Corpuscular Volume 81 FL (80-99) Mean Corpuscular Hemoglobin 24.9 PG (27.0-31.0) L Mean Corpuscular Hemoglobin Concent 30.7 G/DL (32.0-36.0) L Red Cell Distribution Width 14.4 % (11.6-14.8) Platelet Count 437 K/UL (150-450) Mean Platelet Volume 5.4 FL (6.5-10.1) L Neutrophils (%) (Auto) 78.2 % (45.0-75.0) H Lymphocytes (%) (Auto) 17.4 % (20.0-45.0) L Monocytes (%) (Auto) 4.2 % (1.0-10.0) Eosinophils (%) (Auto) 0.0 % (0.0-3.0) Basophils (%) (Auto) 0.2 % (0.0-2.0) Sodium Level 140 MMOL/L (136-145) Potassium Level 4.2 MMOL/L (3.5-5.1) Chloride Level 105 MMOL/L (98-107) Carbon Dioxide Level 24 MMOL/L (21-32) Anion Gap 11 mmol/L (5-15) Blood Urea Nitrogen 10 mg/dL (7-18) Creatinine 1.0 MG/DL (0.55-1.30) Estimat Glomerular Filtration Rate > 60 mL/min (>60) Glucose Level 153 MG/DL (74-106) H Calcium Level 9.2 MG/DL (8.5-10.1) Total Bilirubin 0.2 MG/DL (0.2-1.0) Aspartate Amino Transf (AST/SGOT) 10 U/L (15-37) L Alanine Aminotransferase (ALT/SGPT) 7 U/L (12-78) L Alkaline Phosphatase 67 U/L (46-116) Total Protein 8.5 G/DL (6.4-8.2) H Albumin 3.4 G/DL (3.4-5.0) Globulin 5.1 g/dL Albumin/Globulin Ratio 0.7 (1.0-2.7) L Assessment Post-op Diagnosis incarcerated right femoral hernia Plan Problems: (1) Incarcerated right inguinal hernia Assessment & Plan: This is a 53-year-old female with acute incarcerated right inguinal hernia. Hernia is symptomatic and not reducible. CT with abnormal findings as below. Right inguinal hernia with moderate inflammation and now 4.5 cm complex cyst structure with rim enhancement within the hernia sac. Correlate clinically for incarceration. The nature of the cystic lesion is unknown but appears inflammatory. Postop day 1 status post right incarcerated femoral hernia repair with mesh Recovering DC home Follow-up given Rx written Jakob Malave Feb 05, 2019 15:47
--- NOTE | 2019-02-05 15:50 | NUR ---
NURSE NOTES: PATIENT REMAINS STABLE. SEEN BY SURGEON. DISCHARGE ORDER RECEIVED. PATIENT AWARE. REVIEWED D/C INSTRUCTIONS WITH PATIENT. VERBALIZED UNDERSTANDING.RX FILLED AT [facility]. PT EDUCATION PROVIDED. ALL BELONGINGS RETURNED TO PATIENT. WILL F/U WITH DR. LARSON.
[2019-02-05] MEDS ORDERED: Tubing IV Secondary IV ONE (15:59)
--- NOTE | 2019-02-05 16:34 | NUR ---
*-* INSURANCE *-* ALL CLINICALS AND REVIEWS HAVE BEEN FAXED TO: [employer] F:[phone]
--- NOTE | 2019-02-06 07:42 | Discharge Summary ---
Discharge Summary Discharge Summary _ DATE OF ADMISSION: 02/04/2019 DATE OF DISCHARGE: 02/05/2019 DISCHARGED BY: Dr. Boyd Junior CONSULTANTS: Dr. Jakob Malave BRIEF HOSPITAL COURSE: Patient is a 53-year-old female, who presented to ED due to complaints of intermittent right groin pain. Patient was previously diagnosed with inguinal hernia, but it was reducible and asymptomatic. She was seen as an outpatient at Dr. Malave's office. She was noted to have a nonreducible right inguinal hernia that was tender. She was then sent to emergency room for evaluation. She had pain rating 10 out of 10. She denied any tingling or numbness. She denied any recent heavy lifting, fall or injury. Patient at ED, vital signs were stable. Blood work was stable. Urinalysis was negative. Urine drug screen negative. CT of the abdomen and pelvis showed right inguinal hernia with moderate inflammation and with 4.5 cm complex cyst structure with rim enhancement within the hernia sac. She was then admitted for incarcerated right inguinal hernia. She was placed on n.p.o. She was given IV fluids. She was started on IV antibiotics. She was then taken to the OR and underwent right femoral hernia repair with mesh. She tolerated procedure well, and was taken to postanesthetic care unit in stable condition. She was given postop care. She was given pain management. Diet was advanced. The following day, vital signs were stable. Patient was afebrile. There was no leukocytosis. Hemoglobin and hematocrit were stable. She denied any nausea or vomiting. Patient was passing flatus and was ambulating well. Patient was recovering well and was tolerating diet. She was cleared for discharge home, to follow-up with surgeon. FINAL DIAGNOSES: Incarcerated right inguinal hernia status post right femoral hernia repair with mesh. DISPOSITION: Patient was discharged home. DISCHARGE MEDICATIONS: Refer to Discharge Medication List. DISCHARGE INSTRUCTIONS: Follow-up in a week. I have been assigned to complete a discharge summary on this account, I was not involved with the patient's management.--EMILE Van Jacqueline Robles NP Feb 06, 2019 07:42
--- NOTE | 2019-02-06 09:15 | NUR ---
*-* INSURANCE *-* DISCHARGE SUMMARY HAS BEEN FAXED TO: [employer] F:[phone]
--- NOTE | 2019-02-09 20:50 | Cardiology Report ---
APPROVED REPORT EKG Measurement Heart [id number] CT [id number] Normal sinus rhythm with sinus arrhythmia Possible Left atrial enlargement Nonspecific T wave abnormality Abnormal ECG
== END 2019-02-05 16:00 | disposition home or self-care (01) | DRG 352 ==
LOC: EMR 14:52 → EDBEDREQ 17:07 → EDBEDREQSVC 17:13 → SUR 17:17 → 3E 19:18
PROC: 0YU70JZ Supplement Right Femoral Region with Synthetic Substitute, Open Approach (ICD-10-PCS; principal; 2019-02-04 17:30)
DX: K41.30 Unilateral femoral hernia, with obstruction, without gangrene, not specified as recurrent (principal)
CPT/HCPCS: 36415; 71045; 74177; 80053; 80307; 81001; 82550; 82553; 84484; 85025; 85610; 85730; 86850; 86900; 86901; 93005; 94003; 94150; 96365; 96375; 99285; J2405; J2710